=== PATIENT | female | born 1960 | race Caucasian/White ===

== ENCOUNTER → 2019-01-20 | Outpatient (CLI) | payer OTHER ==
[~2019-01-20] MED LIST: ACET325 PO; ALBU90OI INH; ALBU90OI61 INH; ASPI81CH PO; ASPI81EC PO; ATOR40TA PO; CENTRUM ADULTS1 EACH PO; CEPH500 PO; CLON.1 PO; CLOP75 PO; CYCL10 PO; DULO60 PO; GABA300 PO; HYDACE5 PO; IBUP600 PO; LEVSOD50 PO; LISI20 PO; MELO7.5 PO; METO25ER PO; MULVITMIND PO; NAPR500 PO; NICO14TP TOP; OXYB5 PO; SERT50 PO; STOMUL PO; TIOT18 INH; TRAM50 PO; TROSPIUM CHLORI20 MG PO; Toprol Xl25 MG PO; ZESTRIL40 MG PO; [UNRECOGNIZED DRUG - OTHER]; [UNRECOGNIZED DRUG - OTHER]
[2019-01-20 15:22] LABS: BASOPHILS ABSOLUTE AUTO 0.07 K/mm3 (0.00-0.23); BASOPHILS PERCENT AUTO 1 % (0-2); EOSINOPHILS ABSOLUTE AUTO 0.18 K/mm3 (0.00-0.68); EOSINOPHILS PERCENT AUTO 3 % (0-6); Hematocrit 31.2 % (33.0-51.0); Hemoglobin 9.9 g/dL (11.5-16.0); IMMATURE GRAN ABSOLUTE AUTO 0.02 K/mm3 (0.00-0.10); IMMATURE GRAN PERCENT AUTO 0 % (0-1); LYMPHOCYTES ABSOLUTE AUTO 2.24 K/mm3 (0.84-5.20); LYMPHOCYTES PERCENT AUTO 37 % (21-46); MONOCYTES ABSOLUTE AUTO 0.41 K/mm3 (0.16-1.47); MONOCYTES PERCENT AUTO 7 % (4-13); Mean Corpuscular HGB 28.9 pg (26.0-34.0); Mean Corpuscular HGB Conc 31.7 g/dL (31.5-36.5); Mean Corpuscular Volume 91 fL (80-100); Mean Platelet Volume 10.3 fL (9.1-12.4); NEUTROPHILS ABSOLUTE AUTO 3.14 K/mm3 (1.96-9.15); NEUTROPHILS PERCENT AUTO 52 % (41-73); Platelet Count 294 K/mm3 (150-400); RDW Coefficient Variation 14.4 % (11.7-14.2); RDW Standard Deviation 48.9 fL (35.1-46.3); Red Blood Cell Count 3.42 M/mm3 (3.80-5.20); White Blood Cell Count 6.06 K/mm3 (4.00-11.30)
[2019-01-20 15:39] LABS: Albumin, Blood 3.3 g/dL (3.4-5.0); Albumin/Globulin Ratio 0.8 (0.8-1.8); Bilirubin, Total 0.4 mg/dL (0.1-1.0); Bun/Creatinine Ratio 12.9 (12.0-20.0); Calcium, Blood 8.2 mg/dL (8.5-10.1); Creatinine, Blood 1.39 mg/dL (0.40-1.00); Globulin, Blood 3.9 g/dL (2.2-4.0); Potassium, Blood 4.2 mmol/L (3.5-5.5); Total Protein, Blood 7.2 g/dL (6.4-8.2)
== END ==
LOC: LAB SHORT 15:19 → LAB EV 15:19
PROVIDERS: Emergency Medicine
DX: R06.00 Dyspnea, unspecified (principal)
CPT/HCPCS: 80053; 85025

== ENCOUNTER → 2019-11-09 | Outpatient (CLI) | payer OTHER ==
[2019-11-12 14:10] LABS: COTININE <10.0 ng/mL (.); NICOTINE <10.0 ng/mL (.)
== END | disposition home or self-care (01) ==
LOC: LAB 12:50 → LAB SHORT 12:50 → LAB FUT 11-04 17:20
PROVIDERS: Radiology Diagnostic Radiology
DX: F17.210 Nicotine dependence, cigarettes, uncomplicated (principal); I96 Gangrene, not elsewhere classified
CPT/HCPCS: G0480

== ENCOUNTER 2019-12-10 12:37 | Emergency (ER) | payer OTHER ==
[~2019-12-10] VITALS: Ht 160 cm; Wt 69.2 kg
[~2019-12-10 12:37] MED LIST changes: -ASPI81CH PO; +Aspirin EC81 MG PO; -CENTRUM ADULTS1 EACH PO; +MULTI VITAMIN1 EACH PO
[2019-12-10 13:36] LABS: BASOPHILS ABSOLUTE AUTO 0.03 K/mm3 (0.00-0.23); BASOPHILS PERCENT AUTO 1 % (0-2); EOSINOPHILS ABSOLUTE AUTO 0.16 K/mm3 (0.00-0.68); EOSINOPHILS PERCENT AUTO 3 % (0-6); Hematocrit 30.9 % (33.0-51.0); Hemoglobin 9.6 g/dL (11.5-16.0); IMMATURE GRAN ABSOLUTE AUTO 0.02 K/mm3 (0.00-0.10); IMMATURE GRAN PERCENT AUTO 0 % (0-1); LYMPHOCYTES ABSOLUTE AUTO 2.01 K/mm3 (0.84-5.20); LYMPHOCYTES PERCENT AUTO 33 % (21-46); MONOCYTES PERCENT AUTO 8 % (4-13); Mean Corpuscular HGB 29.4 pg (26.0-34.0); Mean Corpuscular HGB Conc 31.1 g/dL (31.5-36.5); Mean Corpuscular Volume 95 fL (80-100); NEUTROPHILS ABSOLUTE AUTO 3.41 K/mm3 (1.96-9.15); NEUTROPHILS PERCENT AUTO 56 % (41-73); Platelet Count 338 K/mm3 (150-400); RDW Coefficient Variation 14.5 % (11.7-14.2); RDW Standard Deviation 50.4 fL (35.1-46.3); Red Blood Cell Count 3.26 M/mm3 (3.80-5.20); White Blood Cell Count 6.13 K/mm3 (4.00-11.30)
[2019-12-10 13:54] LABS: Albumin, Blood 3.3 g/dL (3.4-5.0); Albumin/Globulin Ratio 0.8 (0.8-1.8); Bilirubin, Total 0.7 mg/dL (0.1-1.0); Bun/Creatinine Ratio 21.7 (12.0-20.0); Calcium, Blood 8.8 mg/dL (8.5-10.1); Creatinine, Blood 1.57 mg/dL (0.40-1.00); Potassium, Blood 3.8 mmol/L (3.5-5.5); Total Protein, Blood 7.3 g/dL (6.4-8.2)
[2019-12-10] MEDS ORDERED: CLON.1 PO (14:15)
[2019-12-10] MEDS ORDERED: SYNTHROID75 MCG PO (14:16)
[2019-12-10] MEDS ORDERED: TORSE20 PO (14:16)
[2019-12-10] MEDS ORDERED: LIPITOR80 MG PO (14:17)
[2019-12-10] MEDS ORDERED: XARELTO2.5 M1 PO (14:17)
[2019-12-10] MEDS ORDERED: NEURONTIN300 MG PO (14:18)
[2019-12-10] MEDS ORDERED: Cymbalta30 MG PO (14:18)
[2019-12-10] MEDS ORDERED: LISI20 PO (14:19)
[2019-12-10 14:49] LABS: Source, Urine Clean Catch
[2019-12-10 14:57] LABS: Appearance, Urine Clear (Clear); Bilirubin, Urine Neg (Neg); Blood, Urine 1+ (Neg); Color, Urine Yellow (P-Yellow); Glucose Qualitative, Urine Neg (Neg); Ketones, Urine Neg (Neg); Leukocyte Esterase, Urine Neg (Neg); Nitrite, Urine Neg (Neg); Protein, Urine Neg (Neg); Urobilinogen, Urine NORM (Normal)
[2019-12-10 15:19] LABS: Bacteria Rare /hpf; Red Blood Cells, Urine Not Seen /hpf (0-2); Squamous Epithelial Cells Rare /hpf (Few); White Blood Cells, Urine Not Seen /hpf (0-5)
== END 2019-12-10 17:22 | disposition short-term general hospital (02) ==
LOC: ER 12:37
PROVIDERS: Emergency Medicine
DX: L03.115 Cellulitis of right lower limb (principal); I73.9 Peripheral vascular disease, unspecified; J44.9 Chronic obstructive pulmonary disease, unspecified; E03.9 Hypothyroidism, unspecified; I10 Essential (primary) hypertension; Z20.828 Contact with and (suspected) exposure to other viral communicable diseases; Z79.82 Long term (current) use of aspirin; Z79.899 Other long term (current) drug therapy; Z79.01 Long term (current) use of anticoagulants; Z86.718 Personal history of other venous thrombosis and embolism; Z86.73 Personal history of transient ischemic attack (TIA), and cerebral infarction without residual deficits; Z91.041 Radiographic dye allergy status; Z88.8 Allergy status to other drugs, medicaments and biological substances; Z79.02 Long term (current) use of antithrombotics/antiplatelets; Z87.891 Personal history of nicotine dependence
CPT/HCPCS: 36415; 73620; 80053; 81001; 83605; 85025; 86140; 93005; 93010; 96361; 96365; 96375; 99285-25; A9270-GY; J1200; J3370; J7030; U0002

== ENCOUNTER → 2020-01-06 | Outpatient (CLI) | payer OTHER ==
[~2020-01-06] MED LIST changes: +ASPI81CH PO; +ATORVASTATIN CA80 M1 PO; +Cymbalta30 MG PO; +Klor-Con 1010 MEQ PO; +LEVOFLOXACIN250 MG PO; +LEVOTHYROXINE 25 MCG PO; +LEVOTHYROXINE 50 MCG PO; +LIPITOR80 MG PO; +METO2.5 PO; +METO50ER PO; +MIRALAX119 GM PO; +NEURONTIN300 MG PO; +ROXICODONE5 MG PO; +SYNTHROID75 MCG PO; +TORSE20 PO; +Ventolin/Proventil INH; +XARELTO2.5 M1 PO; +Zestril30 MG PO; +[UNRECOGNIZED DRUG - OTHER] PO
[2020-01-06 13:01] LABS: Percent Saturation 16.3 % (15.0-50.0)
== END | disposition home or self-care (01) ==
LOC: LAB 12:41 → LAB SHORT 12:41
PROVIDERS: Internal Medicine Hematology & Oncology
DX: N18.31 Chronic kidney disease, stage 3a (principal)
CPT/HCPCS: 82728; 83540; 83550

== ENCOUNTER → 2020-02-05 | Outpatient (CLI) | payer OTHER ==
[2020-02-05 19:14] LABS: Percent Saturation 20.6 % (15.0-50.0)
[2020-02-05 19:40] LABS: Albumin, Blood 3.7 g/dL (3.4-5.0); Anion Gap 8 mmol/L (6-16); Blood Urea Nitrogen 22 mg/dL (8-24); Bun/Creatinine Ratio 18.8 (12.0-20.0); CO2, Blood 32 mmol/L (21-32); Calcium, Blood 9.4 mg/dL (8.5-10.1); Chloride, Blood 104 mmol/L (98-108); Creatinine, Blood 1.17 mg/dL (0.40-1.00); Glomerular Filtration Rate 50 (60-); Glucose, Blood 78 mg/dL (70-99); Phosphorus, Blood 3.3 mg/dL (2.5-4.9); Potassium, Blood 3.6 mmol/L (3.5-5.5); Sodium, Blood 144 mmol/L (136-145)
== END | disposition home or self-care (01) ==
LOC: LAB 14:53 → LAB SHORT 14:53
PROVIDERS: Internal Medicine Hematology & Oncology
DX: N18.31 Chronic kidney disease, stage 3a (principal); D50.9 Iron deficiency anemia, unspecified
CPT/HCPCS: 80069; 82728; 83540; 83550

== ENCOUNTER 2024-03-20 13:28 | Inpatient (IN) | payer OTHER ==
[~2024-03-20] VITALS: Ht 160 cm; Wt 71.6 kg
[2024-03-20 14:08] LABS: BASOPHILS ABSOLUTE AUTO 0.02 K/mm3 (0.00-0.23); BASOPHILS PERCENT AUTO 0 % (0-2); EOSINOPHILS PERCENT AUTO 0 % (0-6); Hematocrit 40.3 % (33.0-51.0); Hemoglobin 13.3 g/dL (11.5-16.0); IMMATURE GRAN ABSOLUTE AUTO 0.17 K/mm3 (0.00-0.10); IMMATURE GRAN PERCENT AUTO 1 % (0-1); LYMPHOCYTES ABSOLUTE AUTO 1.54 K/mm3 (0.84-5.20); LYMPHOCYTES PERCENT AUTO 13 % (21-46); MONOCYTES ABSOLUTE AUTO 0.67 K/mm3 (0.16-1.47); MONOCYTES PERCENT AUTO 6 % (4-13); Mean Corpuscular HGB 30.7 pg (26.0-34.0); Mean Corpuscular Volume 93 fL (80-100); Mean Platelet Volume 11.4 fL (9.1-12.4); NEUTROPHILS ABSOLUTE AUTO 9.71 K/mm3 (1.96-9.15); NEUTROPHILS PERCENT AUTO 80 % (41-73); Platelet Count 299 K/mm3 (150-400); RDW Standard Deviation 48.4 fL (35.1-46.3); Red Blood Cell Count 4.33 M/mm3 (3.80-5.20); White Blood Cell Count 12.11 K/mm3 (4.00-11.30)
[2024-03-20 14:26] LABS: Albumin, Blood 3.7 g/dL (3.4-5.0); Albumin/Globulin Ratio 0.7 (0.8-1.8); Bilirubin, Total 0.8 mg/dL (0.1-1.0); Bun/Creatinine Ratio 9.4 (12.0-20.0); Calcium, Blood 9.3 mg/dL (8.5-10.1); Creatinine, Blood 5.31 mg/dL (0.40-1.00); Potassium, Blood 3.4 mmol/L (3.5-5.5); Total Protein, Blood 8.7 g/dL (6.4-8.2)
[2024-03-20 14:51] LABS: CORONAVIRUS COVID-19 AG Negative (NEGATIVE); INFLUENZA A AG Negative (NEGATIVE); INFLUENZA B AG Negative (NEGATIVE)
[2024-03-20] MEDS ORDERED: NS 1,000 ML IV SCH (19:15)
[2024-03-20] MEDS ORDERED: Ketorolac Tromethamine 15mg Vial IV ONE (19:15)
[2024-03-20] MEDS ORDERED: OxyCODONE HCL 5 MG TAB PO PRN (20:30)
[2024-03-20] MEDS ORDERED: Lactated Ringer's 1,000 ML IV SCH (20:35)
[2024-03-20] MEDS ORDERED: FLU VACC TS2024-25(6MOS UP)/PF 45 MCG/0.5 ML SYRINGE IM SCH (20:35)
[2024-03-20] MEDS ORDERED: Albuterol HFA200 ACT/6.7 GM INH INH PRN (20:40)
[2024-03-20] MEDS ORDERED: Trospium Chloride 20 MG Tab PO SCH (21:00)
[2024-03-20] MEDS ORDERED: Potassium Chloride 20 MEQ TabCR PO SCH (21:00)
[2024-03-20] MEDS ORDERED: Gabapentin 300 MG Cap PO SCH (21:00)
[2024-03-20] MEDS ORDERED: Lactobacil 2-S.Thermo-Bifido 1 1 Cap PO SCH (21:00)
[2024-03-20] MEDS ORDERED: Lactated Ringer's 1,000 ML IV ONE (21:34)
[2024-03-20 22:42] VITALS: BP 103/73
[2024-03-20 22:42] LABS: Thyroid Stimulating Hormone 6.11 uIU/mL (0.360-4.800)
[2024-03-21 04:37] VITALS: BP 126/78
[2024-03-21] MEDS ORDERED: Levothyroxine Sodium 0.075 MG Tab PO SCH (06:00)
[2024-03-21 07:43] VITALS: BP 121/75
--- NOTE | 2024-03-21 07:53 | NUR ---
PT ARRIVED AT 2232. SHE IS QUITE CONFUSED AND CONTINUES TO RESPOND WITH I DON T KNOW TO MOST QUESTIONS ASKED. SPEECH IS SLOW AND STUTTERED. PT HAS HAD DIARRHEA FOR THE LAST 3 DAYS. STOOL SAMPLE SENT OFF TO LAB APPROX [id number]. CALLED LAB TO INFORM THEM SAMPLE WAS SENT. APPROX 0635, PT ABLE TO VOID 100ML. COLLECTED AND SENT OFF TO LAB. PT HAS DISTENDED TENDERNESS IN LOWER ABDOMEN.
[2024-03-21] MEDS ORDERED: Multivitamins/Minerals TAB PO SCH (09:00)
[2024-03-21] MEDS ORDERED: Atorvastatin 40 MG Tab PO SCH (09:00)
[2024-03-21] MEDS ORDERED: DULoxetine HCL 30 MG Cap DR PO SCH (09:00)
[2024-03-21] MEDS ORDERED: Aspirin 81 MG Chew PO SCH (09:00)
[2024-03-21 11:07] LABS: Adenovirus F 40/41 Not Detected (NOT DETECT); Astrovirus Not Detected (NOT DETECT); Campylobacter Sp Not Detected (NOT DETECT); Cryptosporidium Not Detected (NOT DETECT); Cyclospora Cayetanensis Not Detected (NOT DETECT); E. Coli O157 Not Detected (NOT DETECT); Entamoeba Histolytica Not Detected (NOT DETECT); Enteroaggregative E. coli-EAEC Not Detected (NOT DETECT); Enteropathogenic E. coli-EPEC Not Detected (NOT DETECT); Enterotoxigenic E. coli-ETEC Not Detected (NOT DETECT); Giardia Lamblia Not Detected (NOT DETECT); Norovirus GI/GII Not Detected (NOT DETECT); Plesiomonas Shigelloides Not Detected (NOT DETECT); Rotavirus A Not Detected (NOT DETECT); Salmonella Sp Not Detected (NOT DETECT); Sapovirus Not Detected (NOT DETECT); Shiga Toxin-prod E. coli-STEC Not Detected (NOT DETECT); Shigella/Enteroin E. coli-EIEC Not Detected (NOT DETECT); Vibrio Cholerae Not Detected (NOT DETECT); Vibrio Sp Not Detected (NOT DETECT); Yersinia Enterocolitica Not Detected (NOT DETECT)
[2024-03-21] MEDS ORDERED: TORSE20 PO (11:17)
[2024-03-21] MEDS ORDERED: DULO60 PO (11:18)
[2024-03-21 11:19] LABS: BASOPHILS ABSOLUTE AUTO 0.01 K/mm3 (0.00-0.23); BASOPHILS PERCENT AUTO 0 % (0-2); EOSINOPHILS ABSOLUTE AUTO 0.04 K/mm3 (0.00-0.68); EOSINOPHILS PERCENT AUTO 1 % (0-6); Hematocrit 34.6 % (33.0-51.0); Hemoglobin 11.9 g/dL (11.5-16.0); IMMATURE GRAN ABSOLUTE AUTO 0.03 K/mm3 (0.00-0.10); IMMATURE GRAN PERCENT AUTO 0 % (0-1); LYMPHOCYTES ABSOLUTE AUTO 1.31 K/mm3 (0.84-5.20); LYMPHOCYTES PERCENT AUTO 16 % (21-46); MONOCYTES ABSOLUTE AUTO 0.52 K/mm3 (0.16-1.47); MONOCYTES PERCENT AUTO 6 % (4-13); Mean Corpuscular HGB 30.9 pg (26.0-34.0); Mean Corpuscular HGB Conc 34.4 g/dL (31.5-36.5); Mean Corpuscular Volume 90 fL (80-100); Mean Platelet Volume 11.2 fL (9.1-12.4); NEUTROPHILS ABSOLUTE AUTO 6.26 K/mm3 (1.96-9.15); NEUTROPHILS PERCENT AUTO 77 % (41-73); Platelet Count 238 K/mm3 (150-400); RDW Coefficient Variation 13.7 % (11.7-14.2); RDW Standard Deviation 45.1 fL (35.1-46.3); Red Blood Cell Count 3.85 M/mm3 (3.80-5.20); White Blood Cell Count 8.17 K/mm3 (4.00-11.30)
[2024-03-21] MEDS ORDERED: EUTHYROX50 MCG PO (11:19)
[2024-03-21] MEDS ORDERED: DULO30 PO (11:21)
[2024-03-21] MEDS ORDERED: METO50 PO (11:23)
[2024-03-21] MEDS ORDERED: PRENATAL TABLE1 EAC2 PO (11:24)
[2024-03-21 11:36] LABS: Albumin, Blood 2.9 g/dL (3.4-5.0); Albumin/Globulin Ratio 0.7 (0.8-1.8); Bilirubin, Total 0.5 mg/dL (0.1-1.0); Calcium, Blood 8.8 mg/dL (8.5-10.1); Creatinine, Blood 3.19 mg/dL (0.40-1.00); Globulin, Blood 4.2 g/dL (2.2-4.0); Potassium, Blood 3.9 mmol/L (3.5-5.5); Total Protein, Blood 7.1 g/dL (6.4-8.2)
[2024-03-21] MEDS ORDERED: Sodium Bicarb 8.4% Inj 100 MEQ in Sodium Chloride 0.45% 1,000 ML IV SCH ×3 (13:20→13:50)
[2024-03-21 15:34] VITALS: BP 126/94
--- NOTE | 2024-03-21 16:27 | NUR ---
SHIFT SUMMARY: PATIENT CONSULTED BY DR. HOPKINS THIS AFTERNOON, WAS STARTED ON 1/2 NS AND BICARB IV FLUIDS. PATIENT TESTED POSITIVE FOR C DIFF; TOXIN IS NEGATIVE, BUT PATIENT CONTINUES TO HAVE LOOSE WATERY STOOLS; SO TREATMENT WAS STARTED. DESPITE PATIENT'S DEFECIT POST CVA SHE IS ABLE TO MAKE HER NEEDS KNOWN AND IS ABLE TO GET HERSELF TO THE BEDSIDE COMMODE WITH SBA ASSISTANCE. SHE HAS DIFFICULTY WITH WORD CHOICES, BUT STILL CAN MAKE SENSE OF WHAT SHE IS COMMUNICATING. HER FAMILY HAS BEEN VISITING AND WERE EDUCATED ON C DIFF PRECAUTIONS. PATIENT IN BED, CALL LIGHT WITHIN REACH, NO SIGNS OR SYMPTOMS OF DISTRESS, PLAN OF CARE ONGOING.
[2024-03-21] MEDS ORDERED: Vancomycin HCl 125 MG Cap PO SCH (18:00)
--- NOTE | 2024-03-21 18:06 | NUR ---
CALLED DR. HOPKINS AND NOTIFIED HIM THAT THE PATIENT'S PRE VOID BLADDER SCAN ON THE RENAL US WAS [phone] AND POST VOID WAS [phone]; PER DR. HOPKINS PLACE A CLANCY CATHETER.
[2024-03-21 19:40] VITALS: BP 138/74
--- NOTE | 2024-03-22 02:54 | NUR ---
PT VERY FRUSTRATED WITH NOT BEING ABLE TO HAVE A BM, EXPLAINED THAT SHE PROBALBLY DIDN'T HAVE MUCH STOOL LEFT WITH ALL THE BM'S SHE HAS HAD. COMMUNICATION ISSUES BUT GIVEN TIME SHE CAN GET IT CONVEYED. PT CONTINUES ON IVF, AND OUTPUT WAS ADEQUATE. VS WNL. PAIN IN LT UPPER ABDOMEN MEDICATED WITH OXICODONE.
[2024-03-22 03:41] VITALS: BP 139/84
[2024-03-22 05:36] LABS: Hematocrit 35.4 % (33.0-51.0); Hemoglobin 12.3 g/dL (11.5-16.0)
[2024-03-22 06:01] LABS: Magnesium, Blood 1.7 mg/dL (1.6-2.4); Uric Acid, Blood 7.9 mg/dL (2.6-6.0)
[2024-03-22 06:07] LABS: Albumin, Blood 2.7 g/dL (3.4-5.0); Anion Gap 12 mmol/L (3-11); Blood Urea Nitrogen 35 mg/dL (8-24); Bun/Creatinine Ratio 21.7 (12.0-20.0); CO2, Blood 21 mmol/L (21-32); Calcium, Blood 8.7 mg/dL (8.5-10.1); Chloride, Blood 107 mmol/L (98-108); Creatinine, Blood 1.61 mg/dL (0.40-1.00); Glomerular Filtration Rate 35 (60-); Glucose, Blood 78 mg/dL (70-99); Potassium, Blood 3.9 mmol/L (3.5-5.5); Sodium, Blood 136 mmol/L (136-145); Thyroxine (T4) 8.9 ug/dL (4.8-13.9)
[2024-03-22] MEDS ORDERED: NS 1,000 ML IV SCH (06:40)
[2024-03-22 07:45] VITALS: BP 134/92
[2024-03-22 16:22] VITALS: BP 152/88
--- NOTE | 2024-03-22 17:57 | NUR ---
SHIFT SUMMARY PT CONT LEVEL OF CARE WITH NO ACUTE CHANGES NOTED. PT IS A&O X4 AND ASSIST X1 TO BSC. PT VOICED C/O PAIN THIS SHIFT AND WAS GIVEN PRN PAIN MEDICATION WITH EFFECTIVENESS. NO BOWEL MOVEMENTS NOTED THIS SHIFT. CLANCY REMAINS PATENT WITH YELLOW DRAINAGE NOTED. PT NOTED TO CALL APPROPRIATE AND FOLLOWS COMMANDS.
[2024-03-22 19:38] VITALS: BP 160/90
[2024-03-23] VITALS (9 sets, daily range): BP systolic 156–206; BP diastolic 89–180
[2024-03-23 04:57] LABS: Hematocrit 31.8 % (33.0-51.0); Hemoglobin 10.6 g/dL (11.5-16.0)
[2024-03-23 05:15] LABS: Albumin, Blood 2.6 g/dL (3.4-5.0); Anion Gap 9 mmol/L (3-11); Blood Urea Nitrogen 16 mg/dL (8-24); Bun/Creatinine Ratio 15.4 (12.0-20.0); CO2, Blood 27 mmol/L (21-32); Chloride, Blood 106 mmol/L (98-108); Creatinine, Blood 1.04 mg/dL (0.40-1.00); Glomerular Filtration Rate 60 (60-); Glucose, Blood 98 mg/dL (70-99); Magnesium, Blood 1.8 mg/dL (1.6-2.4); Phosphorus, Blood 3.2 mg/dL (2.5-4.9); Potassium, Blood 3.7 mmol/L (3.5-5.5); Sodium, Blood 138 mmol/L (136-145)
--- NOTE | 2024-03-23 06:24 | NUR ---
SHIFT SUMMARY IV IN LEFT AC LEAKING, NO LONGER PATENT. REMOVED BY KELVIN HORTON. NEW 22G IV INSERTED INTO RIGHT WRIST AND INFUSING WELL. NO COMPLAINTS OF PAIN FROM PT. PT HAS BEEN SLEEPING SOUNDLY, WAKING FOR MEDICATION ADMINISTRATION, THEN RETURNING TO SLEEPING COMFORTABLY. APPROX 0545, PT SITTING UP ON SIDE OF HER BED. PT TOOK MORNING MEDICATIONS PER EMAR. SITTING UP STILL RELAXING.
--- NOTE | 2024-03-23 08:58 | NUR ---
ATTEMPTED TO REACH DR. MATTHEWS TWICE 15 MINUTES APART REGARDING ELEVATED BLOOD PRESSURES THIS AM. WILL ATTEMPT AGAIN IN 15 MINUTES.
[2024-03-23] MEDS ORDERED: Metoprolol Tartrate 50 MG Tab PO SCH (09:40)
[2024-03-23] MEDS ORDERED: AmLODIPine Besylate 5 MG Tab PO SCH (14:00)
[2024-03-23] MEDS ORDERED: HydrALAZINE HCl 20 MG / ML 1ML Vial IV PRN (16:00)
[2024-03-23] MEDS ORDERED: HydrALAZINE HCl 20 MG / ML 1ML Vial IV ONE (16:00)
[2024-03-23] MEDS ORDERED: GABA300 PO (16:58)
[2024-03-23] MEDS ORDERED: AMLO5 PO (16:58)
[2024-03-23] MEDS ORDERED: VANCOCIN HCL125 MG PO (16:59)
--- NOTE | 2024-03-23 18:33 | NUR ---
SHIFT SUMMARY PATIENT BLOOD PRESSURE THIS MORNING WAS ELEVATED 191/94, DR. MATTHEWS NOTIFIED AND RESTARTED HOME METOPROLOL 50 MG BID. FIRST DOSE GIVEN RECHECK WAS STILL ELEVATED. DR MATTHEWS ORDERED NORVASC 5 MG DAILY AND FIRST DOSE WAS GIVEN WHICH ALSO DID NOT BRING DOWN BLOOD PRESSURES. DR. MATTHEWS ORDERED IV HYDRALAZINE Q6 FOR BLOOD PRESSURES GREATER THAN 180. IV HYDRALAZINE WAS GIVEN. PT WAS ANXIOUS AND IN SOME PAIN THIS EVENING SO PRN OXYCODONE WAS GIVEN. PT IS MORE RELAXED LYING IN BED. MOST RECENT BLOOD PRESSURE IS 182/100. TOO SOON TO GIVE IV HYDRALAZINE AGAIN. WILL PASS ON CARE TO ONCOMING NURSE. DISCHARGE WAS HELD DUE TO HYPERTENSION, PT AND FAMILY UPDATED ON PLAN. CALL LIGHT WITHIN REACH. CLANCY CATHETER WAS REMOVED THIS MORNING AND PT HAS BEEN VOIDING IN BSC.
--- NOTE | 2024-03-24 03:59 | NUR ---
SHIFT SUMMARY ADMITTED FOR [facility] ON CKD3. FULL CODE. CONTACT [facility] FOR C. DIFF+. PLAN IS FOR DC HOME TODAY IF HTN IS CONTROLLED. HTN NOTED, HOSPITALISTS ARE AWARE. PO VANCO GIVEN SCHEDULED. RENAL DIET, TOLERATED WELL. DR. HOPKINS IS RENAL CONSULT. ON RA. STANDBY ASSIST TO BSC. A&O X4. HX OF CVA WITH RIGHT SIDED DEFICITS. NO DIARRHEA REPORTED THIS SHIFT. SHE IS VOIDING WELL SINCE CLANCY REMOVED ON AM SHIFT PREVIOUS.
[2024-03-24 04:56] VITALS: BP 173/103
[2024-03-24 05:44] LABS: Hematocrit 35.9 % (33.0-51.0); Hemoglobin 12.1 g/dL (11.5-16.0)
[2024-03-24 06:09] LABS: Albumin, Blood 2.8 g/dL (3.4-5.0); Anion Gap 12 mmol/L (3-11); Blood Urea Nitrogen 9 mg/dL (8-24); Bun/Creatinine Ratio 9.6 (12.0-20.0); CO2, Blood 25 mmol/L (21-32); Calcium, Blood 9.2 mg/dL (8.5-10.1); Chloride, Blood 105 mmol/L (98-108); Creatinine, Blood 0.94 mg/dL (0.40-1.00); Glomerular Filtration Rate 67 (60-); Glucose, Blood 111 mg/dL (70-99); Magnesium, Blood 1.6 mg/dL (1.6-2.4); Potassium, Blood 3.7 mmol/L (3.5-5.5); Sodium, Blood 138 mmol/L (136-145)
[2024-03-24 07:48] VITALS: BP 158/97
[2024-03-24] MEDS ORDERED: Losartan Potassium 50 MG Tab PO SCH (09:00)
[2024-03-24] MEDS ORDERED: LOSA25 PO (10:37)
[2024-03-24 11:14] VITALS: BP 157/102
--- NOTE | 2024-03-24 13:04 | NUR ---
DISCHARGE NOTE PATIENT AND FAMILY EDUCATED ON DISCHARGE PACKET/INSTRUCTIONS AND NEW PRESCRIPTIONS. IV WAS REMOVED. BELONGINGS GATHERED, NO HOME MEDS TO RETURN. PATIENT TAKEN DOWN VIA WHEELCHAIR AND GOT INTO FAMILY'S CAR. NO QUESTIONS OR CONCERNS PRIOR TO DISCHARGE. [facility] WAS CALLED IN TO PREFERRED PHARMACY BY CHARGE NURSE KAYLA SANDOVAL THIS AM, UPDATED IN FINALIZED MED REC
== END 2024-03-24 13:05 | disposition home or self-care (01) | DRG 683 ==
LOC: ER 13:28 → MEDS 21:17
PROVIDERS: Emergency Medicine; Internal Medicine Nephrology; ADMIT Internal Medicine
DX: N17.9 Acute kidney failure, unspecified (principal); A04.72 Enterocolitis due to Clostridium difficile, not specified as recurrent; E87.20 Acidosis, unspecified; E87.1 Hypo-osmolality and hyponatremia; I69.951 Hemiplegia and hemiparesis following unspecified cerebrovascular disease affecting right dominant side; K92.1 Melena; D63.1 Anemia in chronic kidney disease; E88.09 Other disorders of plasma-protein metabolism, not elsewhere classified; N25.81 Secondary hyperparathyroidism of renal origin; N18.30 Chronic kidney disease, stage 3 unspecified; J44.9 Chronic obstructive pulmonary disease, unspecified; E03.9 Hypothyroidism, unspecified; I73.9 Peripheral vascular disease, unspecified; I12.9 Hypertensive chronic kidney disease with stage 1 through stage 4 chronic kidney disease, or unspecified chronic kidney disease; F32.A Depression, unspecified; I69.931 Monoplegia of upper limb following unspecified cerebrovascular disease affecting right dominant side; Z87.19 Personal history of other diseases of the digestive system; Z89.421 Acquired absence of other right toe(s); Z90.710 Acquired absence of both cervix and uterus; Z98.890 Other specified postprocedural states; Z79.82 Long term (current) use of aspirin; Z79.890 Hormone replacement therapy; Z79.899 Other long term (current) drug therapy; Z88.8 Allergy status to other drugs, medicaments and biological substances; Z91.041 Radiographic dye allergy status; F41.9 Anxiety disorder, unspecified; Z87.891 Personal history of nicotine dependence; E87.6 Hypokalemia; D50.9 Iron deficiency anemia, unspecified
CPT/HCPCS: 36415; 71046; 76770; 80053; 80069; 82533; 82550; 83690; 83735; 84436; 84443; 84550; 85014; 85018; 85025; 87324; 87428-QW; 87507; 94760; 96374; 99285-25; A9270; J0360; J1885; J7030; J7120